=== PATIENT | female | born 1995 | race Caucasian/White ===

== ENCOUNTER 2016-07-16 17:48 | Emergency (ER) | payer OTHER ==
[~2016-07-16] VITALS: Ht 154.9 cm; Wt 74.8 kg
[~2016-07-16 17:48] MED LIST: ALBUTEROL 3 ML3 ML INH; ALBUTEROL0.09 MG/A1 INH; ALBUTEROL0.63 MG/1 INH/SOL; CEFUROXIME500 MG PO; COMBIVENT1 ARO INH; COUGH100 MG/5 M PO; IBUPROFEN800 M1 PO; KEPPRA 500MG T500 MG PO; PENICILLIN-VK250 MG PO; PEPCID40 MG PO; PREDNISONE 10MG10 M1 PO; PREDNISONE 10MG10 MG PO; PREDNISONE 20MG20 MG PO; PRENATAL TABLE1 EAC2 PO; PRENATAL1 TA3 PO; PROZAC10 MG PO; ROBITUSSIN COU237 ML PO; TESSALON PERLE100 MG PO; TRI SPRINTEC; TRI-SPRINTEC 281 TAB PO; TYLENOL TAB 32325 MG PO; ZOFRAN ODT4 MG PO
[2016-07-16 18:36] LABS: ABSOLUTE BASOPHIL COUNT 0 /CUMM (0.0-0.2); ABSOLUTE EOSINOPHIL COUNT 0 /CUMM (0.0-0.7); ABSOLUTE GRANULOCYTE CT 5.4 /CUMM (1.4-6.5); ABSOLUTE LYMPH COUNT 2.2 /CUMM (1.2-3.4); ABSOLUTE MONOCYTE COUNT 0.4 /CUMM (0.10-0.60); BASOPHIL % 0.4 % (0.0-2.0); EOSINOPHIL % 0.6 % (0-5); GRANULOCYTE % 67.2 % (42.2-75.2); HEMATOCRIT 41.2 % (37-47); MEAN CORPUSCULAR HGB 29.1 PG (27.0-31.0); MEAN CORPUSCULAR HGB CONC 34.4 G/DL (33.0-37.0); MEAN CORPUSCULAR VOLUME 84.8 FL (81.0-99.0); MEAN PLATELET VOLUME 8.9 FL (7.4-10.4); PLATELET COUNT 222 /CUMM (130-400); RBC DISTRIBUTION WIDTH 12.6 % (11.5-14.5); RED BLOOD CELL CT 4.86 /CUMM (4.20-5.40)
[2016-07-16] MEDS ORDERED: IBUPROFEN800 M1 PO (19:40)
--- NOTE | 2016-07-16 19:40 | ED GI/GU/ABDOMINAL COMPLAINT ---
History of Present Illness General Chief Complaint: Female Urogenital Problems Stated Complaint: VAG BLEEDING X 3 WEEKS Source: patient Exam Limitations: no limitations Vital Signs & Intake/Output Vital Signs & Intake/Output Vital Signs Date Time Temp Pulse Resp B/P B/P Pulse O2 O2 Flow FiO2 Mean Ox Delivery Rate 07/16 1946 97.0 77 18 120/67 97 Room Air 07/17 1939 97 07/16 1753 97.5 96 18 118/77 96 Room Air Allergies Coded Allergies: peanut (Severe, SOB 05/10/15) azithromycin (From Zithromax) (Intermediate, HIVES 05/10/15) shellfish derived (Intermediate, UNSURE-ALLERGY RUNS IN THE FAMILY RESULTING IN ANAPHYLAXIS 05/10/15) Penicillins (Mild, RASH 05/10/15) tree nut (ANAPHYLAXIS 07/01/15) Reconcile Medications Ibuprofen 800 MG TABLET 1 TAB PO PRN PAIN (Reported) Triage Note: 21 Y/O FEMALE C/O VAGINAL BLEEDING X 3 WEEKS; STATES SHE HAS BEEN ON CONTROL FOR 1 YEAR S/P , STOPPED TAKING PILL LAST NIGHT DUE TO SYMPTOMS. C/O DIFFUSE ABDOMINAL PAIN. DENIES N/V/D. STATES HER MENSES HAS BEEN IRREGULAR SINCE 1 YEAR AGO. DENIES CURRENT CHANCE OF . URINE REQUESTED Triage Nurses Notes Reviewed? yes ? n Is pt currently ? No Onset: Abrupt Quality/Severity: cramping, moderate, sharpness Radiation: no radiation Activities at Onset: none No Modifying Factors: none HPI: 21-year-old female comes into emergency room for further evaluation of intermittent vaginal bleeding is been going on for the past year since she gave to her child. Patient reports that she is followed up with her [facility] doctor. Times. They have tried different medications. They have discussed possibly doing a D&C. She comes in because she's had slightly increased bleeding for the past 3 weeks. Denies any other associated symptoms. Sharp intermittent cramping pain to her lower abdomen for quite some time. (LENNY PAT) Past History Travel History Traveled to [place] past 21 day No Medical History Any Pertinent Medical History? 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 No (LENNY PAT) Review of Systems Review of Systems Constitutional: Reports: no symptoms. EENTM: Reports: no symptoms. Respiratory: Reports: no symptoms. Cardiovascular: Reports: no symptoms. GI: Reports: see HPI. Genitourinary: Reports: see HPI. Musculoskeletal: Reports: no symptoms. Skin: Reports: no symptoms. Neurological/Psychological: Reports: no symptoms. Hematologic/Endocrine: Reports: no symptoms. Immunologic/Allergic: Reports: no symptoms. All Other Systems: Reviewed and Negative (LENNY PAT) Physical Exam Physical Exam General Appearance: well developed/nourished, alert, awake Head: atraumatic, normal appearance Eyes: Bilateral: normal appearance, EOMI. Ears, Nose, Throat, Mouth: hearing grossly normal, moist mucous membrane Neck: normal inspection, full range of motion Respiratory: normal breath sounds, no respiratory distress Cardiovascular: regular rate/rhythm Gastrointestinal: normal bowel sounds, soft, non-tender Back: normal inspection Extremities: normal range of motion Neurologic/Psych: awake, alert, oriented x 3, normal gait, normal mood/affect Skin: intact, normal color Core Measures ACS in differential dx? No Severe Sepsis Present: No Septic Shock Present: No (LENNY PAT) Progress Differential Diagnosis: ectopic , intrauterine , kidney stone, ovarian cyst, ovarian torsion, pancreatitis, PID/cervicitis, peptic ulcer, PUD/ GERD, perforated viscous, threatened AB, UTI/pyelo, dysfunctional uterine bleeding Plan of Care: Orders Procedure Date/time Status COMPREHENSIVE METABOLIC PANEL 07/17 1811 Complete CBC WITHOUT DIFFERENTIAL 07/17 1811 Complete URINE 07/16 1754 Complete URINALYSIS 07/16 1754 Complete Laboratory Tests 07/16/16 182: Anion Gap 13, Estimated GFR > 60, BUN/Creatinine Ratio 23.3, Glucose 93, Calcium 9.4, Total Bilirubin 0.3, AST 21, ALT 37, Alkaline Phosphatase 73, Total Protein 6.9, Albumin 4.0, Globulin 2.9, Albumin/Globulin Ratio 1.4, CBC w Diff NO MAN DIFF REQ, RBC 4.86, MCV 84.8, MCH 29.1, RDW 12.6, MPV 8.9, Gran % 67.2, Lymphocytes % 27.2, Monocytes % 4.6, Eosinophils % 0.6, Basophils % 0.4, Absolute Granulocytes 5.4, Absolute Lymphocytes 2.2, Absolute Monocytes 0.4, Absolute Eosinophils 0, Absolute Basophils 0, PUBS MCHC 34.4 07/16/16 1822: Urine Color YEL, Urine Clarity CLEAR, Urine pH 6.0, Ur Specific Williams 1.025, Urine Protein TRACE H, Urine Ketones NEG, Urine Nitrite NEG, Urine Bilirubin NEG, Urine Urobilinogen 0.2, Ur Leukocyte Esterase NEG, Ur Microscopic SEDIMENT EXAMINED, Urine RBC RARE, Urine WBC RARE, Ur Epithelial Cells FEW, Urine Bacteria RARE H, Urine Mucus RARE, Urine Hemoglobin NEG, Urine Glucose NEG, Urine Test NEGATIVE Initial ED EKG: none Comments: 07/16/2016 8:39:55 PM Patient clinically looks well. Nontoxic-appearing. In no apparent distress. Hemodynamically stable. Patient needs follow-up with [facility] doctor. (TERRANCE PERAZA,LENNY) Departure Departure Disposition: HOME OR SELF CARE Condition: Stable Clinical Impression Primary Impression: Vaginal bleeding, abnormal Referrals: CHEYANNE SALGADO DO (PCP/Family) Additional Instructions: Follow-up with your [facility] doctor to discuss other control options and possible D&C. Return if any other concerns worsening symptoms. Please go over all results of today's visit with your primary care doctor. Contact your primary care doctor to let them know you were here in the emergency room. There may be nonspecific findings which may not be related to your visit today here in the emergency room but may require further evaluation and chronic monitoring by your primary care doctor. If you had a laceration today the chance of foreign body always remains. You should follow-up with your primary care doctor for recheck in 3-5 days for a wound check. If you had an x-ray done there is a chance that a fracture could have been missed on initial read and you should follow-up with your primary care doctor for repeat x-rays if symptoms persist. If your blood pressure was elevated here in the emergency room please have rechecked by her primary care doctor within the next 48 hours by your primary care doctor. If you were prescribed a narcotic here in the emergency room or any type of controlled substances you're not allowed to drive while taking this medication or operate any type of heavy machinery. Narcotics can make you feel lightheaded dizziness nausea and can cause constipation. You may need to pickle sorter a stool softener. Thank you for choosing [facility] emergency room. Please return to the emergency room immediately if you have any other concerns worsening of symptoms. Departure Forms: Customer Survey General Discharge Information (LENNY PAT) PA/APARTMENT HOUSE MANAGER Co-Sign Statement Statement: ED Attending supervision documentation- [] I saw and evaluated the patient. I have also reviewed all the pertinent lab results and diagnostic results. I agree with the findings and the plan of care as documented in the PA's/APARTMENT HOUSE MANAGER's documentation. [X] I have reviewed the ED Record and agree with the PA's/APARTMENT HOUSE MANAGER's documentation. [] Additions or exceptions (if any) to the PAs/APARTMENT HOUSE MANAGER's note and plan are summarized below: [] (MACKENZIE RANDALL,LINDA Richards)
[2016-07-16 19:47] VITALS: BP 120/67
== END 2016-07-16 19:47 ==
LOC: ERH 17:48
PROVIDERS: Emergency Medicine
DX: N93.9 Abnormal uterine and vaginal bleeding, unspecified (principal)
CPT/HCPCS: 81001; 81025

== ENCOUNTER 2017-05-28 12:03 | Emergency (ER) | payer OTHER ==
[~2017-05-28] VITALS: Ht 154.9 cm; Wt 83.9 kg
[~2017-05-28 12:03] MED LIST changes: +ABILIFY2 MG PO; +PROAIR HFA8.5 GM INH; +VENLAFAXINE HCL75 M1 PO
--- NOTE | 2017-05-28 12:16 | ED PSYCHIATRIC COMPLAINT ---
History of Present Illness General Chief Complaint: Psychiatric Related Complaint Stated Complaint: BIBA ? SI Source: patient, EMS Exam Limitations: no limitations Vital Signs & Intake/Output Vital Signs & Intake/Output Vital Signs Date Time Temp Pulse Resp B/P B/P Pulse O2 O2 Flow FiO2 Mean Ox Delivery Rate 05/28 1716 97.4 109 18 122/68 97 05/28 1214 97.4 94 18 129/78 100 Room Air Allergies Coded Allergies: aripiprazole (From ABILIFY) (Severe, SEIZURE 05/28/17) fluoxetine (From PROZAC) (Severe, SEIZURES 10/19/16) lamotrigine (From LAMICTAL) (Severe, PARALIZWD ON ONE SIDE 05/28/17) mushroom (Severe, MOUTH SWELLS UP, THROAT CLOSES 10/20/16) azithromycin (From Zithromax) (Intermediate, HIVES 05/10/15) citalopram (From CELEXA) (Intermediate, MOUTH SWELLS UP, DIFFICULTY BREATHING ) sertraline (From ZOLOFT) (Intermediate, "BLACK OUTS". 10/19/16) shellfish derived (Intermediate, UNSURE-ALLERGY RUNS IN THE FAMILY RESULTING IN ANAPHYLAXIS 05/10/15) Penicillins (Mild, RASH 05/10/15) tree nut (ANAPHYLAXIS 07/01/15) Reconcile Medications Albuterol Sulfate (Proair Hfa) 90 MCG HFA.AER.AD 2 PUF INH Q4-6 PRN PRN ASTHMA (Reported) Ergocalciferol (Vitamin D2) (Vitamin D2) 50,000 UNIT CAPSULE 1 CAP PO Q 2 WEEKS VITAMIN SUPPORT (Reported) Venlafaxine HCl (Venlafaxine HCl ER) 75 MG CAP.ER.24H 75 MG PO DAILY MENTAL HEALTH (Reported) Triage Nurses Notes Reviewed? yes Onset: Gradual Duration: worse persistent since (1-2 DAYS) Timing: recent history Severity: severe Associated Symptoms: anxiety, suicidal ideation HPI: Patient is a 22-year-old female presenting to the emergency department with chief complaint of feeling suicidal. Patient reports that she's had thoughts of hurting herself but has no specific plan at this time. Patient denies any homicidal ideation. Denies any nausea or vomiting fevers or chills. Denies any visual or auditory hallucinations. Denies any chest pain or palpitations. Patient reports that she takes Effexor, dose recently increased about one month ago. Denies any drug use. Reports social use of alcohol. Past History Travel History Traveled to [place] past 21 day No Medical History Any Pertinent Medical History? 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 No Review of Systems Review of Systems Constitutional: Reports: no symptoms. Comments Review of systems: See HPI, All other systems negative. Constitutional, no chills fever or weight loss HEENT: No visual changes no sore throat no congestion Cardiovascular: No chest pain ,palpitation , orthopnea or ankle swelling Skin, no jaundice no rashes Respiratory: No dyspnea cough sputum or hemoptysis GI: No nausea no vomiting : No dysuria No hematuria Muscle skeletal: no back pain, no neck pain, Neurologic: No numbness no confusion, no headaches Psych: Positive stress, anxiety and depression Heme/endocrine: No bruising no bleeding no polyuria or polydipsia Immunology: No splenectomy or history of AIDS Physical Exam Physical Exam General Appearance: well developed/nourished, no apparent distress, alert, awake , comfortable Neurological/Psychiatric: oriented x 3 Comments: Well-developed well-nourished person in no acute distress HEENT: Atraumatic, normocephalic Neck: Normal inspection Cardiovascular: Regular rate and rhythms no murmurs rubs or gallops, normal JVP Respiratory: No respiratory distress.breath sounds clear to auscultation bilaterally Extremity: No edema, no calf tenderness to palpation, normal and equal pulses. Neuro: Alert oriented x3 Skin: No appreciable rash on exposed skin, skin is warm and dry. Psych: Depressed mood, flat affect, memory and judgment is normal. SAD PERSONS SAD PERSONS Response Value Social Support? has support 0 Total 0 SAD PERSONS Done? yes Progress Differential Diagnosis: MAJOR DEPRESSIVE DISORDER, GENERALIZING ANXIETY DISORDER, MOOD DISORDER, MEDICATION NONCOMPLIANCE, THYROID DYSFUNCTION, ELEVATED WHITE DISORDER Plan of Care: Orders Procedure Date/time Status Continuous Observation Monitor 05/28 122 Active URINE 05/28 122 Complete URINE DRUG SCREEN FOR ER ONLY 05/28 122 Complete TSH REFLEX 05/28 1225 Complete ETHANOL 05/28 1225 Complete COMPREHENSIVE METABOLIC PANEL 05/28 1225 Complete CBC WITHOUT DIFFERENTIAL 05/28 1225 Complete ED CRISIS PSYCH CONSULT 05/28 122 Active Current Medications Sig/Wolf Start time Last Medication Dose Stop Time Status Admin Venlafaxine HCl 75 MG DAILY 05/28 175 UNVr (Effexor Xr) Laboratory Tests 05/28/17 1331: Urine Opiates Screen < 100, Methadone Screen < 40, Barbiturate Screen < 60, Ur Phencyclidine Scrn < 6.00, Amphetamines Screen < 100, U Benzodiazepines Scrn < 85, Urine Cocaine Screen < 50, Urine Cannabis Screen < 5.00, Urine Test NEGATIVE 05/28/17 1240: Anion Gap 13, Estimated GFR > 60, BUN/Creatinine Ratio 20.0, Glucose 92, Calcium 9.5, Total Bilirubin 0.7, AST 36, ALT 40, Alkaline Phosphatase 62, Total Protein 7.0, Albumin 4.2, Globulin 2.8, Albumin/Globulin Ratio 1.5, TSH &T3 &Free T4 Intrp 0.951, CBC w Diff NO MAN DIFF REQ, RBC 4.66, MCV 84.2, MCH 29.4, MCHC 34.9 , RDW 13.3, MPV 8.8, Gran % 76.7 H, Lymphocytes % 17.2 L, Monocytes % 5.5, Eosinophils % 0.2, Basophils % 0.4, Absolute Granulocytes 5.5, Absolute Lymphocytes 1.2, Absolute Monocytes 0.4, Absolute Eosinophils 0, Absolute Basophils 0, Serum Alcohol < 10.0 Comments: 05/28/2017 6:03:30 PM patient cleared by crisis. Deemed not a harm to self or others. Patient feels comfortable with discharge plans to follow up with IOP on Wednesday. She was educated on signs and symptoms return. Patient is nontoxic. Departure Departure Time of Disposition: 1801 Disposition: HOME OR SELF CARE Condition: Stable Clinical Impression Primary Impression: Depression with suicidal ideation Referrals: Skyler Huff DO (PCP/Family) Additional Instructions: Follow-up with recommendations made by crisis keep appointment for Wednesday, return over the weekend for any worsening symptoms or concerns. Continue taking her previously prescribed medications as directed. Departure Forms: Customer Survey General Discharge Information
[2017-05-28 12:57] LABS: ABSOLUTE BASOPHIL COUNT 0 /CUMM (0.0-0.2); ABSOLUTE EOSINOPHIL COUNT 0 /CUMM (0.0-0.7); ABSOLUTE GRANULOCYTE CT 5.5 /CUMM (1.4-6.5); ABSOLUTE LYMPH COUNT 1.2 /CUMM (1.2-3.4); ABSOLUTE MONOCYTE COUNT 0.4 /CUMM (0.10-0.60); BASOPHIL % 0.4 % (0.0-2.0); EOSINOPHIL % 0.2 % (0-5); GRANULOCYTE % 76.7 % (42.2-75.2); HEMATOCRIT 39.2 % (37-47); MEAN CORPUSCULAR HGB 29.4 PG (27.0-31.0); MEAN CORPUSCULAR HGB CONC 34.9 G/DL (33.0-37.0); MEAN CORPUSCULAR VOLUME 84.2 FL (81.0-99.0); MEAN PLATELET VOLUME 8.8 FL (7.4-10.4); PLATELET COUNT 213 /CUMM (130-400); RBC DISTRIBUTION WIDTH 13.3 % (11.5-14.5); RED BLOOD CELL CT 4.66 /CUMM (4.20-5.40); WHITE BLOOD CELL COUNT 7.2 /CUMM (4.8-10.8)
[2017-05-28] MEDS ORDERED: VITAMIN D250000 UNIT PO (13:26)
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
[2017-05-28 17:16] VITALS: BP 122/68
== END 2017-05-28 18:15 ==
LOC: ERH 12:03
PROVIDERS: Physician Assistant
DX: F32.9 Major depressive disorder, single episode, unspecified (principal); R45.851 Suicidal ideations
CPT/HCPCS: 80307; 81025; G0463; G0480

== ENCOUNTER 2017-08-04 20:30 | Emergency (ER) | payer OTHER ==
[~2017-08-04] VITALS: Ht 154.9 cm; Wt 83.5 kg
[~2017-08-04 20:30] MED LIST changes: +VITAMIN D250000 UNIT PO
--- NOTE | 2017-08-04 22:05 | ED DYSPNEA/ASTHMA COMPLAINT ---
History of Present Illness General Chief Complaint: Dyspnea (COPD, CHF, Other) Stated Complaint: SOB Source: patient Exam Limitations: no limitations Vital Signs & Intake/Output Vital Signs & Intake/Output Vital Signs Date Time Temp Pulse Resp B/P B/P Pulse O2 O2 Flow FiO2 Mean Ox Delivery Rate 08/04 2303 97.8 98 18 119/72 98 Room Air 08/04 2213 98 08/04 2205 97 Room Air 08/04 2044 96.5 97 18 116/77 97 Room Air Allergies Coded Allergies: aripiprazole (From ABILIFY) (Severe, SEIZURE 05/28/17) fluoxetine (From PROZAC) (Severe, SEIZURES 10/19/16) mushroom (Severe, MOUTH SWELLS UP, THROAT CLOSES 10/20/16) azithromycin (From Zithromax) (Intermediate, HIVES 05/10/15) citalopram (From CELEXA) (Intermediate, MOUTH SWELLS UP, DIFFICULTY BREATHING ) sertraline (From ZOLOFT) (Intermediate, "BLACK OUTS". 10/19/16) shellfish derived (Intermediate, UNSURE-ALLERGY RUNS IN THE FAMILY RESULTING IN ANAPHYLAXIS 05/10/15) Penicillins (Mild, RASH 05/10/15) tree nut (ANAPHYLAXIS 07/01/15) Reconcile Medications Albuterol Sulfate (Proair Hfa) 90 MCG HFA.AER.AD 2 PUF INH Q4-6 PRN PRN ASTHMA (Reported) Albuterol Sulfate 2.5 MG/3 ML (0.083 %) VIAL.NEB 1 Vial INH/BERENICE Q4P PRN wheezing Ergocalciferol (Vitamin D2) (Vitamin D2) 50,000 UNIT CAPSULE 1 CAP PO Q 2 WEEKS VITAMIN SUPPORT (Reported) Prednisone 10 MG TABLET 1 DOSE PO DAILY asthma take 5 tabs days 1 & 2, 4 tabs Day 3, 3 tabs day 4, 2 tabs daily 5, 1 tabs day 6 Venlafaxine HCl (Venlafaxine HCl ER) 75 MG CAP.ER.24H 75 MG PO DAILY MENTAL HEALTH (Reported) Triage Note: PT TO ER C/C ASTHMA EXACERBATION X 4 DAYS. USING INH AND NEB W/O RELIEF. HX OF ASTHMA. RA SAT 97%. DRY COUGH NOTED. NO ACUTE DISTRESS. Triage Nurses Notes Reviewed? yes Onset: Gradual Duration: day(s): Timing: recent history Severity: moderate : No Patient currently breastfeeds: No HPI: 22yo female with hx of asthma presents to ED complaining of increasing dyspnea for the past 5 days. Patient has been using her inhalers at home however states that over the past 2 days her inhalers have not been helping. Patient reports cough productive of yellow sputum. Patient reports intermittent wheezing. Denies fevers, chills, malaise,, pain, nausea, vomiting. (Nadia Perez) Past History Travel History Traveled to [place] past 21 day No Medical History Any Pertinent Medical History? 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 No (Nadia Perez) Review of Systems Review of Systems Constitutional: Reports: no symptoms. EENTM: Reports: no symptoms. Respiratory: Reports: see HPI. Cardiovascular: Reports: no symptoms. GI: Reports: no symptoms. Genitourinary: Reports: no symptoms. Musculoskeletal: Reports: no symptoms. Skin: Reports: no symptoms. Neurological/Psychological: Reports: no symptoms. Hematologic/Endocrine: Reports: no symptoms. Immunologic/Allergic: Reports: no symptoms. All Other Systems: Reviewed and Negative (Ndaia Peerz) Physical Exam Physical Exam General Appearance: well developed/nourished, no apparent distress, alert, awake Head: atraumatic, normal appearance Eyes: Bilateral: normal appearance. Ears, Nose, Throat: hearing grossly normal Neck: normal inspection, supple, full range of motion Respiratory: no respiratory distress, course breath sounds bilateral lower lobes Cardiovascular: regular rate/rhythm Extremities: normal inspection, normal range of motion Neurologic/Psych: awake, alert, oriented x 3 Skin: intact, normal color, warm/dry Core Measures ACS in differential dx? No CVA/TIA Diagnosis No Sepsis Present: No Sepsis Focused Exam Completed? No (Nadia Perez) Progress Differential Diagnosis: asthma, bronchitis, costochondritis, pneumonia Plan of Care: Orders Procedure Date/time Status URINE 08/04 2128 Complete URINALYSIS 08/04 2128 Complete Laboratory Tests 08/04/172199: Urine Color YEL, Urine Clarity CLEAR, Urine pH 6.0, Ur Specific [place] >= 1.030 , Urine Protein NEG, Urine Ketones NEG, Urine Nitrite NEG, Urine Bilirubin NEG, Urine Urobilinogen 0.2, Ur Leukocyte Esterase TRACE H, Ur Microscopic SEDIMENT EXAMINED, Urine RBC 1-3, Urine WBC 1-3 H, Ur Epithelial Cells FEW, Urine Bacteria MOD H, Urine Hemoglobin NEG, Urine Glucose NEG, Urine Test NEGATIVE Patient feels some improvement following DuoNeb here in the emergency department. Chest x-ray shows no acute abnormality. Patient has no hypoxia, vital signs are stable, she is in no acute distress. She does have bilateral coarse breath sounds consistent with likely asthma exacerbation. Patient to begin short-term course of steroids and continue inhalers and nebulizers. She will follow-up with her primary care doctor. She was given strict return precautions. The patient agrees with the plan of care. Diagnostic Imaging: Viewed by Me: Radiology Read. Discussed w/RAD: Radiology Read. Radiology Impression: PATIENT: IDANIA HIGHTOWER PRESENT AGE: 22 PATIENT ACCOUNT NO: [id number] : 96 LOCATION: [facility] ORDERING PHYSICIAN: Nadia PERAZA SERVICE DATE: 08/04/17-2128 EXAM TYPE: RAD - XRY-CHEST XRAY, TWO VIEWS EXAMINATION: CHEST 2 VIEWS CLINICAL INFORMATION: Dyspnea. COMPARISON: None. TECHNIQUE: PA and lateral views of the chest were obtained. FINDINGS: The cardiac silhouette is not enlarged. The mediastinal and hilar contours are unremarkable. There are neither pleural effusions nor pneumothoraces. There are no consolidations. The osseous structures are unremarkable. IMPRESSION: No evidence for acute disease. DICTATED BY: Bobby Mcelroy MD DATE/TIME DICTATED:08/04/172245 RISK ASSESSMENT CONSULTANT: EUGENIA DATE/TIME TRANSCRIBED:08/04/172245 CONFIDENTIAL, DO NOT COPY WITHOUT APPROPRIATE AUTHORIZATION. <Electronically signed in Other Vendor System> SIGNED BY: Bobby Mcelroy MD 08/04/172248 Initial ED EKG: none (Nadia Perez) Departure Departure Disposition: HOME OR SELF CARE Condition: Stable Clinical Impression Primary Impression: Dyspnea Qualifiers: Dyspnea type: unspecified Qualified Code: R06.00 - Dyspnea, unspecified Secondary Impressions: Asthma exacerbation Qualifiers: Asthma severity: unspecified severity Asthma persistence: intermittent Qualified Code: J45.21 - Mild intermittent asthma with (acute) exacerbation Referrals: Skyler Huff DO (PCP/Family) Additional Instructions: Take full course of steroids. Also use your inhalers as prescribed. You were given a refill on your albuterol nebulizer. Follow-up with your primary care doctor. Return if you have worsening symptoms or concerns. Please note that there might be incidental findings in your evaluation that are unrelated to the current emergency department visit. Please notify your primary care doctor about this emergency department visit in order to obtain and review all of the testing performed so that these incidental findings can be monitored as needed. If you had an x-ray performed, please understand that some fractures may not be seen on the initial set of x-rays. If your symptoms persist you might need a repeat set of x-rays to check for such a fracture. If you had a laceration evaluated, please understand that foreign bodies such as glass or wood may not be visible to the naked eye or on plain x-rays. If the wound becomes red, swollen, increasingly more painful or if there is any drainage from the wound, please have it reevaluated by a physician for the possibility of a retained foreign body. If you're unable to follow up as outlined in the discharge instructions please return to the emergency department. Thank you for choosing the [facility] Emergency Department for your care. It was a pleasure to serve you today. Departure Forms: Customer Survey General Discharge Information Prescriptions: Current Visit Scripts Prednisone 1 DOSE PO DAILY #20 TAB take 5 tabs days 1 & 2, 4 tabs Day 3, 3 tabs day 4, 2 tabs daily 5, 1 tabs day 6 Albuterol Sulfate 1 Vial INH/BERENICE Q4P PRN wheezing #20 Vial (Nadia Perez) PA/SEWAGE PLANT SUPERVISOR Co-Sign Statement Statement: ED Attending supervision documentation- I saw and evaluated the patient. I have also reviewed all the pertinent lab results and diagnostic results. I agree with the findings and the plan of care as documented in the PA's/SEWAGE PLANT SUPERVISOR's documentation. x I have reviewed the ED Record and agree with the PA's/SEWAGE PLANT SUPERVISOR's documentation. [] Additions or exceptions (if any) to the PAs/SEWAGE PLANT SUPERVISOR's note and plan are summarized below: [] (Ancelmo RANDALL,Ananda) Critical Care Note Critical Care Note Critical Care Time: non-applicable (Martha PERAZA,Nadia Lopez)
--- NOTE | 2017-08-04 22:49 | RADIOLOGY REPORT ---
EXAMINATION: CHEST 2 VIEWS CLINICAL INFORMATION: Dyspnea. COMPARISON: None. TECHNIQUE: PA and lateral views of the chest were obtained. FINDINGS: The cardiac silhouette is not enlarged. The mediastinal and hilar contours are unremarkable. There are neither pleural effusions nor pneumothoraces. There are no consolidations. The osseous structures are unremarkable. IMPRESSION: No evidence for acute disease.
[2017-08-04] MEDS ORDERED: PREDNISONE10 M2 PO (23:01)
[2017-08-04] MEDS ORDERED: ALBUTEROL2.5 MG/3 M INH/SOL (23:01)
[2017-08-04 23:03] VITALS: BP 119/72
== END 2017-08-04 23:08 ==
LOC: ERH 20:30
DX: J45.901 Unspecified asthma with (acute) exacerbation (principal); R06.00 Dyspnea, unspecified
CPT/HCPCS: 1263; 71046; 81001; 81025